=== PATIENT | male | born 1945 ===

== ENCOUNTER 2022-09-22 04:30 | Day surgery (SDC) | payer OTHER ==
[~2022-09-22 04:30] MED LIST: ELIQUIS5 MG PO; LIPITOR20 MG PO; LOSARTAN POTASS50 MG PO; TOPROL XL25 M1 PO
== END 2022-09-22 13:50 | disposition home or self-care (01) ==
LOC: CIR.AMB 04:30
PROVIDERS: ATTEND Surgery Surgery of the Hand
DX: M67.844 Other specified disorders of tendon, left hand (principal)

== ENCOUNTER 2023-01-05 06:00 | Day surgery (SDC) | payer OTHER | END 2023-01-05 13:35 | disposition home or self-care (01) | LOC: CIR.AMB 06:00 | PROVIDERS: ATTEND Surgery Surgery of the Hand | DX: M65.841 Other synovitis and tenosynovitis, right hand (principal); Z20.822 Contact with and (suspected) exposure to COVID-19; I10 Essential (primary) hypertension; E78.5 Hyperlipidemia, unspecified ==